=== PATIENT | male | born 1965 | race African-American/Black ===

== ENCOUNTER 2018-02-22 00:12 | Emergency (ER) | payer OTHER ==
[2018-02-22] MEDS ORDERED: ACETAMINOPHEN 500 MG TABLET (FP) PO ONE (00:30)
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
[2018-02-22] MEDS ORDERED: ACETAMINOPHEN 325 MG TABLET (FP) ONE (01:06)
[2018-02-22] MEDS ORDERED: IBUPROFEN 400 MG TABLET (FP) PO ONE ×2 (01:08)
[2018-02-22 01:47] VITALS: BP 133/89; PULSE 75; TEMP 98.8; BMI 28.7
== END 2018-02-22 01:37 | disposition home or self-care (01) ==
LOC: JER 00:12
DX: S89.81XA Other specified injuries of right lower leg, initial encounter (principal); W03.XXXA Other fall on same level due to collision with another person, initial encounter; Y93.89 Activity, other specified; Y92.89 Other specified places as the place of occurrence of the external cause; Y99.0 Civilian activity done for income or pay; X02.8XXA Other exposure to controlled fire in building or structure, initial encounter
CPT/HCPCS: 73562-TC-RT-FY; 99282-25

== ENCOUNTER 2019-12-09 09:43 | Emergency (ER) | payer OTHER ==
[2019-12-09 09:55] VITALS: BP 150/93; PULSE 77; TEMP 98.4; BMI 28.7
[2019-12-09] MEDS ORDERED: CYCLOBENZAPRINE HCL 10 MG TABLET (FP) PO ONE (10:13)
[2019-12-09] MEDS ORDERED: KETOROLAC TROMETHAMINE 60 MG/2 ML VIAL IM ONE (10:13)
--- OUTSIDE RECORDS SUMMARY | 2019-12-09 10:14 | XMS ---
:1965 Author Organization [facility] Care Team Providers Name Role Phone ED STAFF PHYSICIAN, STAFF Unavailable Unavailable ED STAFF PHYSICIAN Unavailable Unavailable Re-disclosure Warning The records that you are about to access may contain information from federally- assisted alcohol or drug abuse programs. If such information is present, then the following federally mandated warning applies: This information has been disclosed to you from records protected by federal confidentiality rules (42 CFR part 2). The federal rules prohibit you from making any further disclosure of this information unless further disclosure is expressly permitted by the written consent of the person to whom it pertains or as otherwise permitted by 42 CFR part 2. A general authorization for the release of medical or other information is NOT sufficient for this purpose. The Federal rules restrict any use of the information to criminally investigate or prosecute any alcohol or drug abuse patient.The records that you are about to access may contain highly sensitive health information, the redisclosure of which is protected by Article 27-F of the [place] State Public Health law. If you continue you may haveaccess to information: Regarding HIV / AIDS; Provided by facilities licensed or operated by the [facility] Office of Mental Health; or Provided by the [facility] Office for People With Developmental Disabilities. If such information is present, then the following [facility] mandated warning applies: This information has been disclosed to you from confidential records which are protected by state law. State law prohibits you from making any further disclosure of this information without the specific written consent of the person to whom it pertains, or as otherwise permitted by law. Any unauthorized further disclosure in violation of state law may result in a fine or detention sentence or both. A general authorization for the release of medical or other information is NOT sufficient authorization for further disclosure. Encounters Encounter Providers Location Date Indications Data Source(s ) Emergency Attender: ED STAFF H 03/03/2019 [facility] PHYSICIANAttender: 08:30:00 PM EST [facility] STAFF ED STAFF - 03/03/2019 PHYSICIANAdmitter: 09:44:00 PM EST ED STAFF PHYSICIANReferrer: STAFF ED STAFF PHYSICIAN Patient discharged. Insurance Providers Payer name Policy type Policy ID Covered Covered libertarian's Policy P gamaliel / Coverage libertarian ID relationship to [employer] Inf ormation type morris PENDING WC/NF [id number] SP [id number] ONLY [employer] O [id number] 01 [id number] MANAGEMENT [employer] O [id number] 01 [id number] Problems, Conditions, and Diagnoses Code Display Name Description Problem Type Effective Data Sour ce(s) Dates Y99.0 Civilian activity CIVILIAN ACTIVITY Diagnosis 03/03/2019 [facility] done for income or DONE FOR INCOME 08:30:00 PM [facility] Center pay OR PAY EST Y92.69 Other specified OTH INDUSTRIAL Diagnosis 03/03/2019 [facility] industrial and AND CONSTRUCTION 08:30:00 PM [facility] construction area AREA PLACE EST as the place of occurrence of the external cause Y93.89 Activity, other ACTIVITY, OTHER Diagnosis 03/03/2019 [facility] specified SPECIFIED 08:30:00 PM Medical Cente r EST X58.XXXA Exposure to other EXPOSURE TO OTHER Diagnosis 03/03/2019 [facility] specified factors, SPECIFIED 08:30:00 PM [facility] initial encounter FACTORS, INITIAL EST ENCOUNTER S83.91XA Sprain of SPRAIN OF Diagnosis 03/03/2019 [facility] unspecified site UNSPECIFIED SITE 08:30:00 PM [facility] of right knee, OF RIGHT KNEE, EST initial encounter INITIAL ENCOUNTER S39.012A Strain of muscle, STRAIN OF MUSCLE, Diagnosis 03/03/2019 [facility] fascia and tendon FASCIA AND TENDON 08:30:00 PM [facility] Center of lower back, OF LOWER BACK, EST initial encounter INIT S33.5XXA Sprain of SPRAIN OF Diagnosis 03/03/2019 [facility] ligaments of LIGAMENTS OF 08:30:00 PM Medical C enter lumbar spine, LUMBAR SPINE, EST initial encounter INITIAL ENCOUNTER M54.9 Dorsalgia, DORSALGIA, Diagnosis 03/03/2019 [facility] unspecified UNSPECIFIED 08:30:[address] EST Results ID Date Data Source [id number] 11/11/2019 12:38:00 PM EDT [facility] Name Value Range Interpretation Description Data Sup porting Code Source(s) Document(s ) SARS [facility] coronavirus 2 RNA This lab was ordered by [facility] and reported by [facility]. Procedure Social History Code Duration Value Status Description Data Source(s ) Smoking 03/03/2019 Denies Ever completed Denies Ever Smoked [facility] 09:10:00 PM EST Smoked Medical C enter Smoking 03/03/2019 Denies Ever completed Denies Ever Smoked [facility] 08:40:00 PM EST Smoked Medical C enter Vital Signs ID Date Data Source UNK Name Value Range Interpretation Code Description Data Source(s) Body temperature 36.865549 36.941568 [facility] [place] Respiratory rate 18 /min 18 /min [facility] Oxygen saturation 96 % 96 % [facility] by Pulse oximetry Heart rate 78 /min 78 /min [facility] Diastolic blood 78 mm[Hg] 78 mm[Hg] [facility] Systolic blood 140 mm[Hg] 140 mm[Hg] [facility] Body temperature 36.737636 36.014805 [facility] Respiratory rate 19 /min 19 /min [facility] Oxygen saturation 96 % 96 % [facility] by Pulse oximetry Heart rate 82 /min 82 /min [facility] Diastolic blood 85 mm[Hg] 85 mm[Hg] [facility] Systolic blood 143 mm[Hg] 143 mm[Hg] [facility]
[2019-12-09] MEDS ORDERED: KETOROLAC TROMETHAMINE 60 MG/2 ML VIAL ONE (10:21)
[2019-12-09] MEDS ORDERED: CYCLOBENZAPRINE HCL 10 MG TABLET (FP) ONE (10:21)
--- NOTE | 2019-12-09 10:30 | PDOC ---
History of Present Illness - General Chief Complaint: Back Pain Stated Complaint: LOWER BACK PAIN Time Seen by Provider: 12/09/19 09:58 History Source: Patient Exam Limitations: No Limitations - History of Present Illness Initial Comments: 12/09/19 10:25 54-year-old male presents to ED with complaints of right and left lower back pain for the past hour. 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 Patient states earlier this year had sustained a low back injury under the care of pain management receiving epidurals which seemed to improve a lot of his discomfort but since then has had intermittent low back pain controlled with Aleve or ibuprofen 600. Patient denies any saddle anesthesia, incontinence, weakness of the lower extremity, or radiation of pain. Occurred: reports: just prior to arrival Severity: reports: mild Pain Location: reports: back Method of Injury: Yes: other Modifying Factors: improves with: None Associated Symptoms (Fall): denies symptoms Past History - Travel History Traveled outside of the country in the last 30 days: No Close contact w/someone who was outside of country & ill: No - Medical History Allergies/Adverse Reactions: Allergies Allergy/AdvReac Type Severity Reaction Status Date / Time No Known Allergies Allergy Verified 12/09/19 09:55 Home Medications: Ambulatory Orders Cyclobenzaprine HCl [Flexeril 10 mg] 5 mg PO BID PRN #10 tablet 12/09/19 Naproxen [Naprosyn -] 375 mg PO BID #20 tablet 12/09/19 Anemia: No - Surgical History Abdominal Surgery: Yes (HERNIA REPAIR) - Psycho-Social/Smoking History Patient Lives Alone: No Lives with/in: spouse/SO Smoking Status: No Smoking History: Never smoked Have you smoked in the past 12 months: No Number of Cigarettes Smoked Daily: 0 Information on smoking cessation initiated: No - Substance Abuse Hx (Audit-C & DAST Scrn) How often the patient has a drink containing alcohol: Never Score: In Men: 4 or > Positive; In Women: 3 or > Positive: 0 Screen Result (Pos requires Nsg. Audit-10AR): Negative In the last yr the pt used illegal drug/Rx for NonMed reason: No Score: Yes response is considered Positive: 0 Screen Result (Positive result requires Nsg. DAST-10): Negative Trauma Specific PMHX - Complaint Specific PMHX Back Injury: Yes Review of Systems - Review of Systems Able to Perform ROS?: No Is the patient limited Frisian proficient: No Constitutional: No: Symptoms Reported HEENTM: No: Symptoms Reported Respiratory: No: Symptoms reported Cardiac (ROS): No: Symptoms Reported ABD/GI: No: Symptoms Reported : No: Symptoms Reported Musculoskeletal: Yes: Back Pain, Neck Pain. No: Joint Pain Integumentary: No: Symptoms Reported Neurological: No: Symptoms reported *Physical Exam - Vital Signs Last Vital Signs Temp Pulse Resp BP Pulse Ox 98.4 F 77 18 150/93 99 12/09/19 09:53 12/09/19 09:53 12/09/19 09:53 12/09/19 09:53 12/09/19 09:53 - Physical Exam General Appearance: Yes: Nourished, Appropriately Dressed. No: Apparent Distress HEENT: negative: Pale Conjunctivae Neck: positive: Supple. negative: Tender, Decreased range of motion Respiratory/Chest: positive: Lungs Clear, Normal Breath Sounds. negative: Respiratory Distress, Accessory Muscle Use Cardiovascular: positive: Regular Rhythm, Regular Rate. negative: Murmur Gastrointestinal/Abdominal: positive: Soft. negative: Tenderness Musculoskeletal: negative: Vertebral Tenderness (no midline tenderness no sciatic tenderness. Patient with paraspinous tenderness to the lumbar region from L2-L5 bilaterally. 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 Patient with history of the same earlier this year under the care of pain management. Exam: Patient with no midline tenderness no sciatic tenderness but with noted bilateral paraspinous tenderness at the lumbar region. Plan: Toradol IM with Flexeril p.o. Patient will be discharged home with Naprosyn along with Flexeril Patient can follow-up with employee health Discharge - Discharge Information Problems reviewed: Yes Clinical Impression/Diagnosis: Low back strain Condition: Good Disposition: HOME - Admission No - Additional Discharge Information Prescriptions: Cyclobenzaprine HCl [Flexeril 10 mg] 5 mg PO BID PRN #10 tablet PRN Reason: Back Pain Naproxen [Naprosyn -] 375 mg PO BID #20 tablet - Follow up/Referral - Patient Discharge Instructions Patient Printed Discharge Instructions: DI for Low Back Pain, Low Back Pain (Alternative Therapy) Additional Instructions: Continue to apply ice to the affected area X 72 HOURS. Take Naprosyn and Flexeril as needed for discomfort. You may also want to consider following up with employee health. - Post Discharge Activity
== END 2019-12-09 10:46 | disposition home or self-care (01) ==
LOC: JER 09:43
PROC: 3E0233Z Introduction of Anti-inflammatory into Muscle, Percutaneous Approach (ICD-10-PCS; principal; 2019-12-09)
DX: S39.012A Strain of muscle, fascia and tendon of lower back, initial encounter (principal)
CPT/HCPCS: 99284-25